=== PATIENT | male | born 1985 | race Caucasian/White ===

== ENCOUNTER 2017-02-15 11:33 | Emergency (ER) | payer OTHER ==
[~2017-02-15] VITALS: Ht 180.3 cm; Wt 68.9 kg
--- NOTE | 2017-02-15 14:08 | REP ---
SCROTAL ULTRASOUND: 02/15/2017. Clinical history: Swelling and pain of the scrotum. No prior studies. I have no prior study. There is normal homogeneous appearance to both testes. The right testis 4.7 x 2.9 x 3.3 cm. Left testis 4.8 x 2.6 x 3.4 cm. No visible torsion. Doppler tracing show resistive index 0.63 right, 0.45 left. CC diameter of the right epididymal head is 8.8 mm, on the left 6.3 mm. There is an epididymal head cyst on the left 4.9 x 4.1 x 3.6 mm. No hydrocele. There is a small left varicocele. No other findings. Impression: 1. Small left varicocele with epididymal head cyst on the left 4.9 x 4.1 mm. No hyperemia, mass, microlithiasis or hydrocele. No other finding. Signed by Yaya Hdez MD 02/15/2017 08:28 P
[2017-02-15] MEDS ORDERED: IBUP600T26 PO (14:09)
[2017-02-15 14:28] VITALS: BP 116/74
== END 2017-02-15 14:31 | disposition home or self-care (01) ==
LOC: M ED 13:39
DX: I86.1 Scrotal varices (principal); N50.3 Cyst of epididymis; F17.210 Nicotine dependence, cigarettes, uncomplicated